=== PATIENT | female | born 1960 ===

== ENCOUNTER 2019-10-21 19:26 | Emergency (ER) | payer OTHER ==
--- NOTE | 2019-10-21 19:36 | UC ---
Abdominal Pain Female HPI - HPI Summary HPI Summary: 3-4 days of lower abd pain to the point that she doubles over. Assoc. w/ watery diarrhea and feels distended. Has lost appetite. Pain is intermittent. denies vaginal discharge. - History of Current Complaint Chief Complaint: UCAbdominalPain Stated Complaint: ABDOMINAL PAIN Time Seen by Provider: 10/21/19 19:36 Hx Obtained From: Patient Character: Burning, Sharp Aggravating Factor(s): Movement Alleviating Factor(s): Position Allergies/Adverse Reactions: Allergies Allergy/AdvReac Type Severity Reaction Status Date / Time MS medications Allergy Unknown Uncoded 10/21/19 20:37 Reaction Details PMH/Surg Hx/FS Hx/Imm Hx Previously Healthy: Yes Neurological History: Other - MS - Surgical History Other Surgical History: - Family History Known Family History: Positive: Non-Contributory - Social History Lives: Alone Review of Systems All Other Systems Reviewed And Are Negative: Yes Constitutional: Negative: Fever, Chills, Fatigue Skin: Negative: Rash Respiratory: Negative: Shortness Of Breath Gastrointestinal: Positive: Abdominal Pain, Diarrhea - watery Genitourinary: Negative: Dysuria Neurological: Negative: Headache, Weakness, Paresthesia, Numbness Physical Exam Triage Information Reviewed: Yes Appearance: Well-Appearing, Well-Nourished, Pain Distress - mild Vital Signs Reviewed: Yes Respiratory Exam: Normal Cardiovascular Exam: Normal Abdomen Description: Positive: Soft, Distended, Guarding, Other: - +RLQ tenderness. Negative: CVA Tenderness (R), CVA Tenderness (L), Pulsatile Mass Bowel Sounds: Positive: Present Neurological: Positive: Alert Skin: Negative: Rashes Abd Pain Female Course/Dx - Course Course Of Treatment: Acute Severe RLQ pain in an afebrile pt. w/ Hx of MS. ON exam significant for + RLQ pain. Appendicitis will need to be ruled out and have recommended going to ED via ambulance. She has declined and is stable so she will go directly to ED. We do not have CT with contrast and she is best evaluated at ED should she need intervention. I reassured pt as she did not want to go to ED. - Differential Dx/Diagnosis Differential Diagnosis: Appendicitis, Pelvic Inflammatory Disease, Peptic Ulcer Disease, Urinary Tract Infection, Other Provider Diagnosis: Right lower quadrant pain Discharge ED - Sign-Out/Discharge Documenting (check all that apply): Patient Departure All imaging exams completed and their final reports reviewed: No Studies - Discharge Plan Condition: Stable Disposition: HOME-RECOMMEND TO ED Patient Education Materials: Acute Abdominal Pain (DC) Referrals: No Primary Care Phys,NOPCP [Primary Care Provider] - Additional Instructions: Please go to the Emergency Room to rule out appendicitis. - Billing Disposition and Condition Condition: STABLE Disposition: Home-Recommend to ED - Attestation Statements Provider Attestation: This patient was discussed with me I did not exam this patient chart reviewed and I concur with the need for a higher level of care [facility]
[2019-10-21 19:52] VITALS: BP 136/69
== END 2019-10-21 20:10 | disposition home health service (06) ==
LOC: UCEAST 19:26
DX: R10.31 Right lower quadrant pain (principal); Z88.8 Allergy status to other drugs, medicaments and biological substances
CPT/HCPCS: 99202; G0463

== ENCOUNTER 2019-10-21 20:33 | Emergency (ER) | payer OTHER ==
[2019-10-21 20:37] VITALS: BP 142/58
[2019-10-21 21:06] LABS: ABS Eosinophils 0.1 10^3/ul (0-0.6); ABS Lymphocytes 1.7 10^3/ul (1.0-4.8); ABS Monocytes 0.5 10^3/ul (0-0.8); ABS Neutrophils 5.5 10^3/ul (1.5-7.7); Hematocrit 39 % (35-47); Hemoglobin 13.4 g/dL (12.0-16.0); Lymphocyte % 21.6 %; Mean Corpuscular HGB Conc 34 g/dL (31-36); Mean Corpuscular Hemoglobin 28 pg (27-31); Mean Corpuscular Volume 83 fL (80-97); Mean Platelet Volume 8.6 fL (7.4-10.4); Nucleated Red Blood Cells % 0.1; Platelet Count 227 10^3/uL (150-450); Red Blood Count 4.71 10^6 /uL (3.70-4.87); Red Cell Distribution Width 12 % (10-15); White Blood Count 7.8 10^3/uL (3.5-10.8)
[2019-10-21 21:25] LABS: Albumin 3.9 g/dL (3.2-5.2); Albumin/Globulin Ratio 1.3 (1-3); BUN/Creatinine Ratio 18.8 (8-20); Calcium 9.8 mg/dL (8.6-10.3); EGFR African American 106.1 (>60); EGFR Non-African American 87.7 (>60); Globulin 2.9 g/dL (2-4); Potassium 3.7 mmol/L (3.5-5.0); Total Bilirubin 0.2 mg/dL (0.2-1.0); Total Protein 6.8 g/dL (6.4-8.9)
[2019-10-21 21:44] LABS: Urine Appearance Clear; Urine Bilirubin Negative (Negative); Urine Blood 1+ (Negative); Urine Color Straw; Urine Glucose Negative (Negative); Urine Ketones Negative (Negative); Urine Nitrite Negative (Negative); Urine Protein Negative (Negative); Urine Specific Gravity 1.002 (1.010-1.030); Urine Urobilinogen Negative (Negative)
[2019-10-21 21:50] LABS: Urine Bacteria 3+ (Absent); Urine Red Blood Cell 2+(6-10/hpf) (Absent); Urine White Blood Cell Absent (Absent)
== END 2019-10-21 21:34 | disposition left against medical advice (07) ==
LOC: ED 20:33
DX: R10.9 Unspecified abdominal pain (principal)
CPT/HCPCS: 36415; 80053; 81003; 81015; 85025; 87086; 99282